=== PATIENT | female | born 1965 | race Caucasian/White ===

== ENCOUNTER 2018-07-13 17:26 | Emergency (ER) | payer BC ==
--- OUTSIDE RECORDS SUMMARY | 2018-07-13 17:58 | XMS REPORT ---
:1965 External Reference #:[id number] Author Organization [facility] Address [address] [place] [address] Phone [phone] Care Team Providers Name Role Phone Mohamud Belle MD Care Team Information Sustain Engineer Unavailable Mohamud Belle MD Primary Care Physician Unavailable Payers Type Date Identification Numbers Payment Provider Subscriber Commercial Effective: Policy Number: Out Of Area [facility] Cipriano Olvera 2017 [id number] PayID: [id number] [address] [address] [place] [address] Problems Date Description Provider Status Onset: 08/27/2007 Hyperlipidemia Mohamud Belle M.D. Active Family History Date Family Member(s) Problem(s) Comments General bipolar depression Father Heart Disease w/ stents; high chol Father Non Insulin Dependent Diabetes Mother Chronic Obstructive Pulmonary Disease smoker (COPD) Number of Children 2 biological sons and 2 step sons Number of Siblings 2 full and 3 half siblings Social History Type Date Description Comments Marital Status Patient is Occupation realestate Cigarette Use Nonsmoker ETOH Use Occasional Daily Caffeine Some Caffeine Allergies, Adverse Reactions, Alerts Date Description Reaction Status Severity Comments 04/03/2012 NKDA active 04/03/2012 Seasonal active Medications Medication Date Status Form Strength Qnty SIG Indications Ordering Provider No Active 09/22/ Active Unknown Medications 2017 Zyrtec Allergy 04/03/ Hx Tablets 10mg 30tab 1 po qd 477.9 [id number] ;may fill Mendel, 09/21/ w/ Afnp-C 2017 generic Naproxen 04/03/ Hx Tablets 500mg 60tab 1 po bid 307.81 [id number] w/ food Mendel, 09/30/ Afnp-C 2014 Cyclobenzaprine HCL 04/03/ Hx Tablets 10mg 20tab 1 po tid 307.81 Mary 2011 - s prn for Mendel, 09/30/ muscle Afnp-C 2014 spasm Dexmethylphenidate 09/25/ Hx Tablets 5mg 60tab 1 po 314.01 Mohamud A. HCL 2007 - s qd-bid Darlow, 04/03/ prn, M.D. 2012 disp. sixty Zithromax Z-Corby 08/22/ Hx Tablets 250mg 1Pack as 388.70 Mohamud A. 2008 - Directed Darlow, 09/25/ M.D. 2007 Diflucan 12/30/ Hx Tablets 150mg 2tabs 1 PO Mohamud A. 2006 - Times 1 Darlow, 09/25/ Day, November M.D. 2007 Repeat In 5-7D Patanol Eye gtts 03/10/ Hx 5cc 1-2 gtts Mohamud A. 2003 - bid prn Darlow, 12/30/ M.D. 2006 Clarinex 03/10/ Hx Tabs 5mg 30tab 1 po qd Mohamud A. 2004 - s Darlow, 12/30/ M.D. 2006 Entex-LA (Without 10/14/ Hx 14uni 1 PO bid Mohamud A. Ppa) 2003 - ts prn Darlow, 10/28/ M.D. 2003 Nasonex 10/14/ Hx 50mcg 1unit 2 sprays Mohamud A. 2003 - s each Darlow, 12/30/ nostril M.D. 2006 qd Zoloft 12/27/ Hx 25mg 60uni 1-2 po Mohamud A. 2002 - ts qam Darlow, 12/30/ M.D. 2006 Feso4 12/26/ Hx 325mg 30uni 1 qd Mohamud A. 2002 - ts Darlow, 01/25/ M.D. 2002 Immunizations CPT Code Status Date Vaccine Lot # [id number] Given 01/30/2006 Tetanus And Diptheria Adult Preservative Free [id number] >7Yrs Vital Signs Date Vital Result Comment 07/13/2018 BP Systolic 128 mmHg BP Diastolic 64 mmHg Heart Rate 68 /min Body Temperature 97.9 F Respiratory Rate 16 /min Height 63.5 inches 5'3.50" Weight 191.00 lb BMI (Body Mass Index) 33.3 kg/m2 09/22/2017 BP Systolic 110 mmHg BP Diastolic 74 mmHg Heart Rate 84 /min Body Temperature 98.8 F Height 63.5 inches 5'3.50" Weight 187.00 lb BMI (Body Mass Index) 32.6 kg/m2 09/30/2013 BP Systolic 116 mmHg BP Diastolic 80 mmHg Heart Rate 76 /min Body Temperature 98.5 F Respiratory Rate 16 /min Height 63.5 inches 5'3.50" Weight 193.00 lb BMI (Body Mass Index) 33.6 kg/m2 04/03/2012 Heart Rate 76 /min Body Temperature 98.5 F Height 63.5 inches 5'3.50" Weight 179.00 lb BMI (Body Mass Index) 31.2 kg/m2 09/26/2007 BP Systolic 124 mmHg BP Diastolic 80 mmHg Heart Rate 76 /min Respiratory Rate 16 /min Height 63.2 inches 5'3.20" Weight 176.00 lb BMI (Body Mass Index) 31.0 kg/m2 08/27/2007 BP Systolic 102 mmHg BP Diastolic 62 mmHg Heart Rate 80 /min Body Temperature 99.0 F Height 63.2 inches 5'3.20" Weight 174.00 lb BMI (Body Mass Index) 30.6 kg/m2 Right Visual Acuity Distance 20/20 Left Visual Acuity Distance 20/20 08/22/2007 BP Systolic 122 mmHg BP Diastolic 72 mmHg Heart Rate 72 /min Body Temperature 99.4 F Respiratory Rate 18 /min Height 63.2 inches 5'3.20" Weight 174.00 lb BMI (Body Mass Index) 30.6 kg/m2 02/09/2006 BP Systolic 122 mmHg BP Diastolic 72 mmHg Heart Rate 68 /min Height 63.2 inches 5'3.20" 01/30/2006 BP Systolic 120 mmHg BP Diastolic 76 mmHg Heart Rate 64 /min Height 63.2 inches 5'3.20" Weight 172.00 lb BMI (Body Mass Index) 30.3 kg/m2 12/30/2005 BP Systolic 118 mmHg BP Diastolic 68 mmHg Heart Rate 72 /min Height 63.2 inches 5'3.20" Weight 175.00 lb BMI (Body Mass Index) 30.8 kg/m2 03/10/2004 BP Systolic 130 mmHg BP Diastolic 72 mmHg Heart Rate 68 /min Height 63.2 inches 5'3.20" Weight 172.00 lb BMI (Body Mass Index) 30.3 kg/m2 10/15/2003 BP Systolic 100 mmHg BP Diastolic 60 mmHg Heart Rate 72 /min Height 63.2 inches 5'3.20" 12/26/2002 BP Systolic 110 mmHg BP Diastolic 80 mmHg Heart Rate 68 /min Height 63.2 inches 5'3.20" Weight 162.00 lb BMI (Body Mass Index) 28.5 kg/m2 Results Test Date Test Result H/L Range Note Laboratory test finding 09/22/2017 Hemoglobin A1c (Fma) 5.7 % % 4.1-5.7 Lipid Profile 09/22/2017 Cholesterol 251 mg/dL High 120-200 Triglycerides 101 mg/dL 30-200 HDL Cholesterol 53 mg/dL 30-85 LDL (Calculated) 178 CALC High 0-129 VLDL Cholesterol 20 mg/dL 0-50 HDL Risk Factor 4.7 CALC High 0.0-4.4 Comprehensive Metabolic Prof 09/22/2017 Sodium 139 mEq/L 134-149 Potassium 4.7 mEq/L 3.6-5.5 Chloride 103 mEq/L 94-112 Carbon Dioxide 23 mEq/L 21-32 Glucose 94 mg/dL 70-105 BUN 19 mg/dL 6-26 Creatinine 0.9 mg/dL 0.6-1.4 BUN/Creat Ratio 21.1 CALC 8.0-36.0 Calcium 10.1 mg/dL 8.6-10.2 Total Protein 7.7 g/dL 6.4-8.3 Albumin 5.0 g/dL 3.8-5.5 Globulin 2.7 g/dL 2.0-4.8 A/G Ratio 1.9 CALC 0.6-2.3 Alk. Phosphatase 47 U/L 30-110 Alt (SGPT) 17 U/L 7-35 Ast (Sgot) 17 U/L 5-34 Total Bilirubin 0.5 mg/dL 0.2-1.3 GFR Non- >60 ml/min/1.73m^ >=60 GFR >60 ml/min/1.73m^ >=60 Arthritis Panel 09/28/2012 Erythrocyte Sed Rate 16 mm/Hr High 0-14 Uric Acid 5.3 mg/dL 2.6-7.2 [place] (Anti-Nuclear AB) Screen Negative Negative Rheumatoid Factor <15 IU/mL <15 1 Lipid Profile 09/12/2007 Cholesterol 248 mg/dL High 120-200 2 HDL 60 mg/dL 30-85 2 Triglycerides 110 mg/dL 30-200 2 HDL Risk Factor 4.1 CALC Low 4.2-7.0 2 LDL (Calculated) 166 CALC High 0-129 2 VLDL (Calculated) 22 mg/dL 0-50 2 Comprehensive Metabolic Prof 09/12/2007 Albumin 4.5 g/dL 3.8-5.5 2 Alk. Phos. 41 U/L 30-110 2 Alt (SGPT) 12 U/L 7-35 2 Ast (Sgot) 15 U/L 5-34 2 BUN 15 mg/dL 6-26 2 Calcium 9.8 mg/dL 8.6-10.2 2 Chloride 102 mEq/L 94-112 2 Creatinine 1.1 mg/dL 0.6-1.4 2 Carbon Dioxide 23 mEq/L 21-32 2 Glucose 99 mg/dL 70-105 2 Sodium 139 mEq/L 134-149 2 Total Bilirubin 0.5 mg/dL 0.2-1.3 2 Total Protein 7.6 g/dL 6.3-8.1 2 Potassium 4.4 mEq/L 3.6-5.5 2 Globulin 3.0 g/dL 2.0-4.8 2 A/G Ratio 1.5 Calc 0.6-2.2 2 BUN/Creat Ratio 13.0 Calc 8.0-36.0 2 Laboratory test finding 09/12/2007 TSH 2.04 mIU/L 0.50-6.00 2 Ua - Non Micro (a) 08/27/2007 Appearance CLEAR Color LT YELLOW Glucose, Urine (Fma/CMC/CTX) NEG Bilirubin NEG Ketones NEG SP Grav 1.010 Blood NEG PH 5.5 Protein NEG Urobil 0.2 Nitrite NEG Leukocytes (a[place] NEG Laboratory test finding 02/09/2006 Thinprep Pap W/HPV SCR. SEE IMAGE Of ALEXI/ASCUS Lipid Profile ([facility]) 01/30/2006 Cholesterol 230 mg/dL High 120-200 Female (a/[facility]) Triglyceride 117 mg/dL 30-200 HDL-Chol 42 mg/dL 30-85 LDL, Calculated (a/[facility] 165 CALC High 0-129 VLDL 23 0-50 HDL Risk Factor (Fma) 5.5 CALC 4.2-7.0 Ua - Non Micro ([facility]) 01/30/2006 Appearance CLEAR Color LT YELLOW Glucose NEG Bilirubin NEG Ketones NEG SP Grav 1.015 Blood SMALL(MENSES) PH 6.5 Protein NEG Urobil 0.2 Nitrite NEG Leukocytes (a/[facility]) NEG CBC Electronic ([facility] 07/28/2004 WBC 8.6 CUMM 4.8-10.8 RBC 4.43 CUMM 4.2-5.4 Hemoglobin (Fma/CMC/CTX) 12.8 g/dL 12.0-16.0 Hematocrit (a/CMC/CTX) 38 % 35-47 Mean Corpuscular Vol 85 UM3 79-97 Mean Corpuscular Hemaglobin 29 pg 27-31 Mean Corpuscular Hemo Concen 34 g/dL 32-36 RDW 13 10.5-15 Platelets 358 CUMM 150-450 Mean Platelet Volume 7.9 7.4-10.4 Granulocytes 59.7 % 38-83 Lymphocytes 32.5 % 20-45 Monocytes 6.3 % 1-9 Eosinophil 1.0 0-6 Basophil% 0.5 0-2 Abs Lymphs 2.8 1.0-4.8 Abs Mononuclear 0.5 0-0.8 Abs Grans 5.2 1.5-7.7 Abs Eosinophils 0.1 0-0.6 Abs Basophils 0 0-0.2 Basic Metabolic ([facility] 12/25/2003 Sodium 137 mmol/L 135-145 Potassium 4.0 mmol/L 3.5-5.0 Chloride 106 mmol/L 101-111 Co2 26.0 mmol/L 22-32 Anion Gap 5.0 mmol/L 2-11 Glucose, Serum (a/CMC/CTX) 96 mg/dL 70-105 BUN (a/[facility]) 11 mg/dL 6-24 Creatinine (a/CMC/CTX) 0.8 mg/dL 0.5-1.4 BUN/Creatinin Ratio 13.8 8-20 Calcium (a/[facility]) 9.2 mg/dL 8.7-10.2 Lipid Profile ([facility] 12/25/2003 Triglyceride 113 mg/dL 40-200 Cholesterol (a/CMC/[facility]) 239 mg/dL High <200 HDL-Chol 42 40-60 Cholesterol / HDL Ratio 5.69 AVG High 1-4.44 LDL, Calculated (Fma/CMC) 174 High <100 Laboratory test finding 12/25/2003 Troponin-I/TnI 0.01 ng/mL 0-0.06 3 D Dimer NEGATIVE Negative 4 CBC Electronic ([facility] 12/25/2003 WBC 6.6 CUMM 4.8-10.8 RBC 4.35 CUMM 4.2-5.4 Hemoglobin (Fma/CMC/CTX) 13.5 g/dL 12.0-16.0 Hematocrit (Fma/CMC/CTX) 39 % 35-47 Mean Corpuscular Vol 90 UM3 79-97 Mean Corpuscular Hemaglobin 31 pg 27-31 Mean Corpuscular Hemo Concen 35 g/dL 32-36 RDW 12 10.5-15 Platelets 322 CUMM 150-450 Mean Platelet Volume 7.3 Low 7.4-10.4 Granulocytes 55.6 % 38-83 Lymphocytes 34.9 % 20-45 Monocytes 6.5 % 1-9 Eosinophil 2.5 0-6 Basophil% 0.5 0-2 NRBC NOT DONE % 0-2 Abs Lymphs 2.3 1.0-4.8 Abs Mononuclear 0.4 0-0.8 Abs Grans 3.7 1.5-7.7 Abs Eosinophils 0.2 0-0.6 Abs Basophils 0 0-0.2 Abs NRBC NOT DONE Laboratory test finding 12/23/2002 Comments LIVER;LIPASE;TSH CBC;Ua & Cult 1 Test Performed by: [place] [address] Foundry Worker Apprentice: Jamil Fraser III, M.D. 2 FASTING 3 TnI INTERPRETATION <0.06 NG/ML NOT SUPPORTIVE OF DIAGNOSIS OF DE 0.06-0.5 NG/ML INDETERMINATE; SUGGEST SERIAL STUDIES IF CLINICALLY INDICATED. >0.5 NG/ML CONSISTENT WITH DIAGNOSIS OF DE 4 TEST DONE BY ALTERNATE METHOD Procedures Date CPT Code Description Status Comment 07/10/2015 Mammogram Completed normal ; 03/10/2004 98430 Holter Monitor Completed Encounters Type Date Location Provider CPT E/M Dx Office Visit 09/22/2017 10:30a [facility] DANUTA Moody 60297 R63.1 R51 E66.3 Z83.3 Z12.11 M25.561 Office Visit 04/03/2012 10:30a [facility] Tami Kirkpatrick-C 49984 307.81 719.46 477.9 Office Visit 09/26/2007 10:40a [facility] Mohamud Belle M.D. 08551 272.4 314.01 Office Visit 08/27/2007 1:30p [facility] Mohamud Belle M.D. 11385 V70.0 272.4 296.90 621.8 Office Visit 08/22/2007 11:40a [facility] Mohamud Belle M.D. 83953 388.70 Office Visit 01/30/2006 9:20a [facility] Mohamud Belle M.D. 64258 V70.0 272.0 V06.5 Office Visit 12/30/2005 9:50a [facility] Ant Leblanc M.D. 99132 112.1 Office Visit 03/10/2004 10:50a [facility] Mohamud Belle M.D. 19807 786.50 477.8 300.4 272.0 Office Visit 10/15/2003 9:10a [facility] Mohamud Belle M.D. 55238 381.81 300.4 Office Visit 12/26/2002 2:40p [facility] Mohamud Belle M.D. 74729 780.79 280.9 782.2 Plan of Care 07/13/2018 - Emily Scanlon M.D.M79.604 Pain in right legComments:possible DVT. Will send to the ER for further work up.AllComments:~B_~U_Medication Management~b_~u_ Patient Understands medications she's taking? Yes No Are there Barriers to Adherence? Yes No Has the patient been asked about herbal supplements and therapies, and OTC meds? Yes No
--- NOTE | 2018-07-13 19:48 | ED ---
Lower Extremity - HPI Summary HPI Summary: This patient is a 52 year old F presenting to [facility] with a chief complaint of frontal upper right thigh radiating to her lower right leg for the past week. Pain is 7/10 upon triage. She denies right knee dysfunction. Patient states she was sent by her primary physician, Dr. Scanlon, to rule out a blood clot. - History of Current Complaint Chief Complaint: EDExtremityLower Stated Complaint: RT LEG SWOLLEN AND PAIN Time Seen by Provider: 07/13/18 19:37 Hx Obtained From: Patient Mechanism Of Injury: Unknown Onset of Pain: Days Onset/Duration: Weeks Severity Currently: Moderate Pain Intensity: 7 Pain Scale Used: 0-10 Numeric Timing: Constant Location: Is Discrete @ - right thigh Associated Signs And Symptoms: Negative: Knee Pain Able to Bear Weight: Yes - Allergies/Home Medications Allergies/Adverse Reactions: Allergies Allergy/AdvReac Type Severity Reaction Status Date / Time No Known Allergies Allergy Verified 12/01/12 08:34 Home Medications: Home Medications NK [No Home Medications Reported] 07/13/18 [History Confirmed 07/13/18] PMH/Surg Hx/FS Hx/Imm Hx Cardiovascular History: Denies: Hx Pacemaker/ICD Sensory History: Denies: Hx Hearing Aid Psychiatric History: Denies: Hx Panic Disorder - Surgical History Surgery Procedure, Year, and Place: 2005- FIBROIDS REMOVED-[facility] Infectious Disease History: No Infectious Disease History: Denies: Traveled Outside the [place] in Last 30 Days - Family History Known Family History: Positive: Hypertension - Social History Alcohol Use: None Substance Use Type: Reports: None Smoking Status (MU): Never Smoked Tobacco Review of Systems Negative: Fever Positive: Myalgia - Right thigh All Other Systems Reviewed And Are Negative: Yes Physical Exam - Summary Physical Exam Summary: Appearance: Well-appearing, Well-nourished, lying in bed comfortable Skin: Warm, dry, no obvious rash Eyes: sclera anicteric, no conjunctival pallor ENT: mucous membranes moist Neck: deferred Respiratory: No signs of respiratory distress Cardiovascular: Appears well perfused, pulses are nml Abdomen: deferred Musculoskeletal: Moving all 4 extremities without obvious discomfort RLE mild tenderness in distal anterior thigh, no arthritis in the knee, knee joint is stable with FROM, no calf tenderness or swelling Neurological: Awake and alert, mentation is normal, speech is fluent and appropriate Psychiatric: affect is normal, does not appear anxious or depressed Triage Information Reviewed: Yes Vital Signs On Initial Exam: Initial Vitals Temp Pulse Resp BP Pulse Ox 97.7 F 76 19 140/74 100 07/13/18 17:28 07/13/18 17:28 07/13/18 17:28 07/13/18 17:28 07/13/18 17:28 Vital Signs Reviewed: Yes Diagnostics - Vital Signs Vital Signs Temp Pulse Resp BP Pulse Ox 07/13/18 17:28 97.7 F 76 19 140/74 100 - Laboratory Lab Statement: Any lab studies that have been ordered have been reviewed, and results considered in the medical decision making process. - Additional Comments Diagnostic Additional Comments: Venous Doppler report reveals, as per radiologist: 1. No evidence of deep vein thrombosis. 2. No abnormality identified in area of soft tissue swelling superior to patella ED Physician has reviewed this report. Lower Extremity Course/Dx - Course Course Of Treatment: 52 year old F presenting to [facility] with a chief complaint of frontal upper right thigh radiating to her lower right leg for the past week. Patient states she was sent by her primary physician, Dr. Scanlon, to rule out a blood clot. Patient has no calf tenderness or swelling and the knee joint moves well with FROM. A Venous Doppler report reveals: "1. No evidence of deep vein thrombosis. 2. No abnormality identified in area of soft tissue swelling superior to patella". Patient will be discharged and is agreeable with this plan. - Diagnoses Provider Diagnoses: Leg pain Discharge - Sign-Out/Discharge Documenting (check all that apply): Patient Departure - discharge - Discharge Plan Condition: Good Disposition: HOME Patient Education Materials: Leg Pain (ED) Referrals: Emily Scanlon MD [Medical Doctor] - If Needed Additional Instructions: I am not sure what is causing your discomfort, but the ultrasound did not show any evidence of a blood clot in the leg, so you are safe to travel as planned. - Billing Disposition and Condition Condition: GOOD Disposition: Home - Attestation Statements Document Initiated by Scribe: Yes Documenting Scribe: Ana Luisa Brown Provider For Whom Adrienibe is Documenting (Include Credential): Ashu Morse MD Scribe Attestation: IAna Luisa, scribed for Ashu Morse MD on 07/14/18 at 0336. Scribe Documentation Reviewed: Yes Provider Attestation: The documentation as recorded by the Ana Luisa meade accurately reflects the service I personally performed and the decisions made by me, Ashu Morse MD Status of Reynaldo Document: Viewed
[2018-07-13 20:27] VITALS: BP 116/78
== END 2018-07-13 20:26 | disposition home or self-care (01) ==
LOC: ED 17:26
DX: M79.606 Pain in leg, unspecified (principal); M79.651 Pain in right thigh
CPT/HCPCS: 99282